=== PATIENT | male | born 1975 | race Caucasian/White ===

== ENCOUNTER → 2020-07-17 | Outpatient (CLI) | payer OTHER ==
[~2020-07-17] MED LIST: ALBU8.5H2 IH; HYDR1TAB86 PO; LORCET PO
--- NOTE | 2020-07-17 12:44 | Diagnostic Imaging Report ---
INDICATION: Fall with left shoulder pain and decreased range of motion. AP, oblique, and transscapular views of the left shoulder are obtained. No fracture or acute bony abnormality is seen. Glenohumeral joint and AC joint appear unremarkable. IMPRESSION: Negative left shoulder. Dictated by: Dictated on workstation # [id number]
== END ==
LOC: RAD FS 11:59
PROVIDERS: ATTEND Nurse Practitioner Family
DX: M25.512 Pain in left shoulder (principal); M25.812 Other specified joint disorders, left shoulder; R53.1 Weakness
CPT/HCPCS: 73030